=== PATIENT | female | born 1980 | race Caucasian/White ===

== ENCOUNTER 2021-06-27 10:53 | Inpatient (IN) | payer OTHER ==
[~2021-06-27] VITALS: Ht 162.6 cm; Wt 85.0 kg
[~2021-06-27 10:53] MED LIST: AMOXICILLIN; EXCEDRIN PM 5001 CAP PO; FLEXERIL5 MG PO; FLUOXETINE; FLUOXETINE40 MG PO; FORTAMET500 MG PO; FREESTYLE PREC1 EAC5 MC; FROVA PO; GLUCOSE TEST ST1 DEV MC; HUMULIN 70/3100 U/M1 SQ; LORTAB 5/500 501 TAB PO; MOTRIN 800800 MG/TAB PO; NEXIUM20 MG PO; NO HOME MEDICATIONS; NORCO 325 MG-51 TAB PO; NORCO PO; OMNICEF 300MG300 MG PO; PERCOCET 325 MG1 TA2 PO; PHENERGAN 25 TA25 MG PO; PROZAC 10MG10 MG PO; SOMA 350MG350 MG/TAB PO; SPRINTEC 35 MCG1 TAB PO; ZOFRAN ODT8 MG PO
[2021-06-27] MEDS ORDERED: NOVOLIN 70/30 710 ML SQ ×2 (11:04)
[2021-06-27] MEDS ORDERED: OXYCONTIN 10MG10 MG PO (11:05)
[2021-06-27] MEDS ORDERED: NEURONTIN400 MG/CAP PO (11:05)
[2021-06-27] MEDS ORDERED: PROZAC 10MG10 MG (11:16)
[2021-06-27] MEDS ORDERED: PHENERGAN 25 TA25 MG PO (11:17)
[2021-06-27 11:29] LABS: BASO % 0.3 % (0.0-2.0); GRAN # 4.4 (1.4-6.5); GRAN % 76.2 % (42.2-75.2); HEMATOCRIT 44.9 % (37.0-47.0); HEMOGLOBIN 15.5 g/dl (12.5-16.0); LYMPH % 16.6 % (20.0-51.0); MEAN CELL VOLUME 85 fl (80.0-100.0); MEAN CORPUSCULAR HEMOGLOBIN 29 pg (27.0-31.0); MEAN CORPUSCULAR HGB CONC 35 g/dl (33.0-37.0); MEAN PLATELET VOLUME 11.7 fl (7.4-10.4); MONO # 0.3 (0.1-0.6); MONO % 5.7 % (1.7-9.3); PLATELET COUNT 211 K/mm3 (130-400); RED BLOOD COUNT 5.31 M/mm3 (4.10-5.30); REDCELL DISTRIBUTION WIDTH-CV 12.3 % (11.5-14.5)
[2021-06-27 11:33] LABS: ALANINE AMINOTRANSFERASE 81 U/L (4-34); ALBUMIN 4.1 gm/dL (3.5-5.0); ALKALINE PHOSPHATASE 100 U/L (50-136); ANION GAP 14 mmol/L (7-16); AST,SGOT 77 U/L (15-37); BILIRUBIN,TOTAL 0.5 mg/dL (0.0-1.0); BLOOD UREA NITROGEN 13 mg/dL (7-17); CALCIUM 8.7 mg/dL (8.4-10.2); CARBON DIOXIDE 23 mmol/L (22-30); CHLORIDE 97 mmol/L (98-107); CREATININE, serum 0.54 (0.52-1.25); GLUCOSE 320 mg/dL (74-106); SODIUM 133 mmol/L (137-145); TOTAL PROTEIN 8.3 gm/dL (6.4-8.2)
[2021-06-27 11:43] LABS: LIPASE 39 U/L (23-300)
[2021-06-27 11:55] LABS: TROPONIN-I < 0.012 ng/mL (0.000-0.035)
[2021-06-27 15:28] VITALS: BP 116/77; PULSE 112; TEMP 98
[2021-06-27] MEDS ORDERED: NORCO 325 MG-51 TAB PO (15:58)
[2021-06-27] MEDS ORDERED: PROZAC 20MG20 MG PO (16:00)
[2021-06-27] MEDS ORDERED: D3-5050000 IU PO (16:07)
[2021-06-27 17:55] VITALS: BP 131/85; PULSE 102; TEMP 98.9
[2021-06-27 19:12] VITALS: BP 125/89; PULSE 100; TEMP 99
[2021-06-27 22:48] VITALS: BP 126/81; PULSE 96; TEMP 98.4
[2021-06-28 04:05] VITALS: BP 112/68; PULSE 82; TEMP 97.9
--- NOTE | 2021-06-28 04:56 | NUR ---
PT 02 2L NC SATUARTING 92-94, PT BS UNSTABLE THROUGH OUT NIGHT; REMAINED ASYMPTOMATIC, INSULIN ADMINISTERED ORDERED. PT DENIES N,V,D, REPORTS PAIN TO BACK AND BLE 05/05. THIS NURSE REVIWED PRONE POSITIONING, 02 WEAN NEEDS AND POC WITH PT. PT VERBALIZES UNDERSTANDING.PT EXPRESSES NO ADDITONAL NEEDS AT THIS TIME. CALL LIGHT WITHIN REACH.
[2021-06-28 05:58] LABS: MUCOUS Present /lpf; PH 6 (5-8); SQUAMOUS EPITHELIAL 0-2 /hpf; URINE APPEARANCE Clear; URINE BACTERIA None Seen /hpf; URINE BILIRUBIN Negative (NEGATIVE); URINE BLOOD Negative (NEGATIVE); URINE COLOR Straw; URINE GLUCOSE 3+ (NEGATIVE); URINE KETONE 2+ (NEGATIVE); URINE LEUKOCYTE ESTERASE Negative (NEGATIVE); URINE NITRATE Negative (NEGATIVE); URINE PROTEIN(semi-quant) Negative (NEGATIVE); URINE RBC 0-2 /hpf; URINE UROBILINOGEN Negative (NEGATIVE); URINE WBC 0-2 /hpf
[2021-06-28 06:05] LABS: COLLECTION METHOD CLEAN CATCH
[2021-06-28 07:16] LABS: HEMATOCRIT 41.8 % (37.0-47.0); HEMOGLOBIN 13.8 g/dl (12.5-16.0); MEAN CELL VOLUME 88 fl (80.0-100.0); MEAN CORPUSCULAR HEMOGLOBIN 29 pg (27.0-31.0); MEAN CORPUSCULAR HGB CONC 33 g/dl (33.0-37.0); MEAN PLATELET VOLUME 11.8 fl (7.4-10.4); PLATELET COUNT 203 K/mm3 (130-400); RED BLOOD COUNT 4.77 M/mm3 (4.10-5.30); REDCELL DISTRIBUTION WIDTH-CV 12.3 % (11.5-14.5)
[2021-06-28 07:22] LABS: CALCIUM 8.7 mg/dL (8.4-10.2); CREATININE, serum 0.59 (0.52-1.25); POTASSIUM 4.1 mmol/L (3.4-5.0)
[2021-06-28 09:14] LABS: BAND 13 % (0-10); METAMYELOCYTE 2 % (0-0); NEUTROPHILS 57 % (42.0-75.2); PLATELET ESTIMATE NORMAL (NORMAL)
[2021-06-28 09:15] LABS: LYMPHOCYTE 23 % (20.0-51.0)
[2021-06-28 10:49] VITALS: BP 112/76; PULSE 90; TEMP 97.8
[2021-06-28 12:25] VITALS: BP 121/74; PULSE 98; TEMP 98.5
[2021-06-28 17:00] VITALS: BP 126/75; PULSE 83; TEMP 98.6
[2021-06-28 20:00] VITALS: BP 123/70; PULSE 82; TEMP 98
--- NOTE | 2021-06-28 22:17 | NUR ---
ALERT OX4. PT EXPERIENCING ANIEXTY DUE TO SPOUSE BEING IN ICU AND NOT DOING WELL AFTER PT 13YR OLD FOUND DAD NOT BREATHING WELL. PT TEARFUL, ALLSION AT BEDSIDE GIVING UPDATE. PT HERSELF DENIES SOA, CHEST PAIN OR DIZZY. PAIN IN LOWER BACK. NORCO AND PM MEDS GIVEN. BS 398 TX 10 UNITS, SEE MAR. POC DISCUSSED. WILL GIVE UPDATES NEEDED. CALL LIGHT WI REACH.
[2021-06-29 00:28] VITALS: BP 112/76; PULSE 84; TEMP 98.4
[2021-06-29 03:55] VITALS: BP 129/73; PULSE 82; TEMP 97.3
--- NOTE | 2021-06-29 05:50 | NUR ---
RESTED THROUGH THE NIGHT WITHOUT INCIDENT. NEEDS MET.
--- NOTE | 2021-06-29 07:38 | NUR ---
mining support worker spoke with patient to discuss discharge planning. Patient is and has a child at home. Her plan is to return home. Patient is employed and has [employer] care insurance through her spouse. Patient's primary care provider is Dr Garcia. Patient states she is independent with mobilization in her room and is on oxygen. Patient plans to return home.
[2021-06-29 08:00] VITALS: BP 111/65; PULSE 70; TEMP 98.7
[2021-06-29 08:17] LABS: HEMATOCRIT 39.8 % (37.0-47.0); HEMOGLOBIN 13.4 g/dl (12.5-16.0); MEAN CELL VOLUME 86 fl (80.0-100.0); MEAN CORPUSCULAR HEMOGLOBIN 29 pg (27.0-31.0); MEAN CORPUSCULAR HGB CONC 34 g/dl (33.0-37.0); MEAN PLATELET VOLUME 11.7 fl (7.4-10.4); PLATELET COUNT 238 K/mm3 (130-400); RED BLOOD COUNT 4.64 M/mm3 (4.10-5.30); REDCELL DISTRIBUTION WIDTH-CV 12.4 % (11.5-14.5)
[2021-06-29 08:20] LABS: CALCIUM 9.1 mg/dL (8.4-10.2); CREATININE, serum 0.47 (0.52-1.25); POTASSIUM 3.3 mmol/L (3.4-5.0)
[2021-06-29 09:40] LABS: BAND 11 % (0-10); LYMPHOCYTE 18 % (20.0-51.0); METAMYELOCYTE 1 % (0-0); NEUTROPHILS 64 % (42.0-75.2)
[2021-06-29 09:41] LABS: PLATELET ESTIMATE NORMAL (NORMAL)
--- NOTE | 2021-06-29 11:33 | NUR ---
PT IS HAVING AN OK MORNING. PT IS VERY WORRIED ABOUT HER WHO IS INTUBATED IN ICU. THE PATIENT IS ON 3L O2 AT THIS TIME. VS OTHERWISE STABLE.
[2021-06-29 12:00] VITALS: BP 117/75; PULSE 77; TEMP 98.2
--- NOTE | 2021-06-29 14:35 | NUR ---
APPROXIMATELY 1325 PT'S BLOOD SUGAR WAS 433. INFORMED DR. ALEXANDRE AFTER GIVING THE PATIENT THE SCHEDULED 5 UNITS WELL THE 14 UNITS FROM SLIDING SCALE FOR A TOTAL OF [address] ALEXANDRE CAME TO THE PATIENT'S ROOM AND ORDERED 10 UNITS IV NOVOLIN R. RECHECKED PT'S BLOOD SUGAR AT 1433 AND PT'S BLOOD SUGAR WAS 358. IV INSULIN ADMINISTERED.
[2021-06-29 20:00] VITALS: BP 129/72; PULSE 84; TEMP 98.1
--- NOTE | 2021-06-29 22:25 | NUR ---
ALERT OX4. DENIES SOA, CHEST PAIN OR DIZZY. PAIN IN LOWER BACK MEDICATED AT 1830 M[address]D. BS UNCONTROLLED TODAY. 433 HS BLOOD SUGAR REPORTED TO NARENDRA BUTLER, 10U REGULAR INSULIN IV GIVEN. WILL RECHECK AT MIDNIGHT. PM MEDS GIVEN. CALL LIGHT WI REACH. NEEDS MET.
[2021-06-30 01:16] VITALS: BP 127/76; PULSE 61; TEMP 97.6
--- NOTE | 2021-06-30 02:36 | NUR ---
RECHECK BS OF 340 REPORTED TO NARENDRA BUTLER, NO NEW ORDERS.
[2021-06-30 04:54] VITALS: BP 126/89; PULSE 89; TEMP 98.3
--- NOTE | 2021-06-30 06:09 | NUR ---
PT RESTED THROUGH THE NIGHT WITHOUT INCIDENT.
[2021-06-30 07:02] LABS: HEMATOCRIT 37.9 % (37.0-47.0); HEMOGLOBIN 12.8 g/dl (12.5-16.0); MEAN CELL VOLUME 87 fl (80.0-100.0); MEAN CORPUSCULAR HEMOGLOBIN 29 pg (27.0-31.0); MEAN CORPUSCULAR HGB CONC 34 g/dl (33.0-37.0); MEAN PLATELET VOLUME 11.2 fl (7.4-10.4); PLATELET COUNT 235 K/mm3 (130-400); RED BLOOD COUNT 4.36 M/mm3 (4.10-5.30); REDCELL DISTRIBUTION WIDTH-CV 12.3 % (11.5-14.5)
[2021-06-30 07:17] LABS: CALCIUM 8.6 mg/dL (8.4-10.2); CREATININE, serum 0.44 (0.52-1.25); POTASSIUM 3.6 mmol/L (3.4-5.0)
[2021-06-30 07:57] VITALS: BP 113/75; PULSE 66; TEMP 97.7
[2021-06-30 08:13] LABS: BAND 8 % (0-10); METAMYELOCYTE 1 % (0-0); NEUTROPHILS 58 % (42.0-75.2); PLATELET ESTIMATE NORMAL (NORMAL)
[2021-06-30 08:34] LABS: LYMPHOCYTE 26 % (20.0-51.0)
--- NOTE | 2021-06-30 08:37 | NUR ---
Pt awake upon entry to room, no C/O pain at this time. Shift assesssment complete, left Pt in bed, call light in reach.
[2021-06-30 12:23] VITALS: BP 121/77; PULSE 70; TEMP 97.5
[2021-06-30 17:59] VITALS: BP 123/78; PULSE 73; TEMP 98
[2021-06-30 20:36] VITALS: BP 127/76; PULSE 77; TEMP 97.4
[2021-07-01 00:25] VITALS: BP 133/79; PULSE 60; TEMP 97.7
[2021-07-01 04:35] VITALS: BP 133/78; PULSE 66; TEMP 97.4
--- NOTE | 2021-07-01 06:15 | NUR ---
Rested quietly throughout operations supervisor 2nd shift, currently on 2L per NC and tolerating, telemetry running NSR, no s/s of hypo/hyper glycemia, VS stable. will continue to monitor.
[2021-07-01 07:40] LABS: HEMATOCRIT 38.2 % (37.0-47.0); HEMOGLOBIN 13.1 g/dl (12.5-16.0); MEAN CELL VOLUME 86 fl (80.0-100.0); MEAN CORPUSCULAR HEMOGLOBIN 30 pg (27.0-31.0); MEAN CORPUSCULAR HGB CONC 34 g/dl (33.0-37.0); MEAN PLATELET VOLUME 11.8 fl (7.4-10.4); PLATELET COUNT 261 K/mm3 (130-400); RED BLOOD COUNT 4.43 M/mm3 (4.10-5.30); REDCELL DISTRIBUTION WIDTH-CV 12.2 % (11.5-14.5)
[2021-07-01 07:46] LABS: ALANINE AMINOTRANSFERASE 32 U/L (4-34); ALBUMIN 3.3 gm/dL (3.5-5.0); ALKALINE PHOSPHATASE 114 U/L (50-136); ANION GAP 9 mmol/L (7-16); AST,SGOT 23 U/L (15-37); BILIRUBIN UNCONJUGATED 0.1 mg/dL (0.0-1.1); BILIRUBIN,TOTAL < 0.1 mg/dL (0.0-1.0); BLOOD UREA NITROGEN 16 mg/dL (7-17); CALCIUM 9.1 mg/dL (8.4-10.2); CARBON DIOXIDE 28 mmol/L (22-30); CHLORIDE 102 mmol/L (98-107); CREATININE, serum 0.44 (0.52-1.25); GLUCOSE 287 mg/dL (74-106); POTASSIUM 3.5 mmol/L (3.4-5.0); SODIUM 138 mmol/L (137-145); TOTAL PROTEIN 6.6 gm/dL (6.4-8.2)
[2021-07-01 08:12] VITALS: BP 115/81; PULSE 64; TEMP 98
[2021-07-01 08:28] LABS: BAND 13 % (0-10); LYMPHOCYTE 26 % (20.0-51.0); METAMYELOCYTE 3 % (0-0); NEUTROPHILS 56 % (42.0-75.2)
[2021-07-01 08:29] LABS: PLATELET ESTIMATE NORMAL (NORMAL)
--- NOTE | 2021-07-01 09:03 | NUR ---
Pt awake upon entry, sitting up in the bed. No C/O pain at this time. Shift assessment complete. Left Pt call light in reach, bed in lowest position.
[2021-07-01 12:14] VITALS: BP 128/78; PULSE 63; TEMP 97.5
[2021-07-01 16:42] VITALS: BP 122/71; PULSE 67; TEMP 97.5
--- NOTE | 2021-07-01 18:20 | NUR ---
Pt rested in the room, titrated Pt from 2 LPM NC to 1 LPM. no other issues noted during the shift.
[2021-07-01 21:07] VITALS: BP 126/75; PULSE 76; TEMP 97.7
[2021-07-02 00:09] VITALS: BP 122/72; PULSE 65; TEMP 97.9
[2021-07-02 04:21] VITALS: BP 132/84; PULSE 68; TEMP 97.9
[2021-07-02 07:53] VITALS: BP 115/79; PULSE 74; TEMP 97.5
[2021-07-02 08:10] LABS: HEMATOCRIT 39.8 % (37.0-47.0); HEMOGLOBIN 13.7 g/dl (12.5-16.0); MEAN CELL VOLUME 84 fl (80.0-100.0); MEAN CORPUSCULAR HEMOGLOBIN 29 pg (27.0-31.0); MEAN CORPUSCULAR HGB CONC 34 g/dl (33.0-37.0); MEAN PLATELET VOLUME 11.1 fl (7.4-10.4); PLATELET COUNT 279 K/mm3 (130-400); RED BLOOD COUNT 4.73 M/mm3 (4.10-5.30); REDCELL DISTRIBUTION WIDTH-CV 12.1 % (11.5-14.5)
[2021-07-02 08:30] LABS: CALCIUM 8.4 mg/dL (8.4-10.2); CREATININE, serum 0.43 (0.52-1.25); POTASSIUM 3.8 mmol/L (3.4-5.0)
--- NOTE | 2021-07-02 09:35 | NUR ---
Pt awake in bed upon entry, C/O pain medications given for relief. Shift assessment complete, left Pt call light in reach, bed in lowest position.
[2021-07-02] MEDS ORDERED: OXYGEN NASAL.CANN (10:04)
[2021-07-02 10:19] LABS: BAND 2 % (0-10); LYMPHOCYTE 23 % (20.0-51.0); METAMYELOCYTE 4 % (0-0); MYELOCYTE 1 % (0-0); NEUTROPHILS 68 % (42.0-75.2)
[2021-07-02 10:22] LABS: PLATELET ESTIMATE NORMAL (NORMAL)
[2021-07-02 12:05] VITALS: BP 107/79; PULSE 70; TEMP 97.6
--- NOTE | 2021-07-02 13:15 | NUR ---
Carri setup o2 oxygen with breath easy to be delivered to pt a 1 pm. Carri faxed over all documentations. 12:20 pm Lupe moreira called and informed me that the pt does not qualify because she is at room air at 96. Carri tried to call the RN Mukund many times but has not answered the phone. 1pm carri called pt to informed her that she doesnt qualify. 1:27 pm DEEPA Duval informed that the pt was mixed up and she does not need oxygen. Carri called lupe moreira to informed them.
--- NOTE | 2021-07-02 14:20 | NUR ---
Pt discharged to home. Disscussed discharge information with Pt, answered questions. Escorted Pt to entrance via WC. Pt left with family via Private transportation.
[2021-07-03 08:04] LABS: PATHOLOGY DIFF REVIEW OK
== END 2021-07-02 14:20 | disposition home or self-care (01) | DRG 177 ==
LOC: COL.ER 10:53 → MEDICAL 13:47
PROVIDERS: Student in an Organized Health Care Education/Training Program; ADMIT Student in an Organized Health Care Education/Training Program
PROC: XW033E5 Introduction of Remdesivir Anti-infective into Peripheral Vein, Percutaneous Approach, New Technology Group 5 (ICD-10-PCS; principal; 2021-06-28)
DX: U07.1 COVID-19 (principal); J96.01 Acute respiratory failure with hypoxia; A08.39 Other viral enteritis; E11.9 Type 2 diabetes mellitus without complications; M79.7 Fibromyalgia; E86.0 Dehydration; R11.2 Nausea with vomiting, unspecified; Z87.891 Personal history of nicotine dependence
CPT/HCPCS: 99222-AI; 99232-AI; 99233-AI; 99239; J0696; J1100; J1650; J1815; J2405; J7030; J7050; Q9967